=== PATIENT | female | born 1970 | race Caucasian/White ===

== ENCOUNTER 2022-02-23 17:19 | Emergency (ER) | payer BC ==
[~2022-02-23] VITALS: Ht 172.7 cm; Wt 132.0 kg
[2022-02-23 18:05] LABS: BASOPHILS % (AUTO) 0 % (0-10); EOSINOPHILS # (AUTO) 0.2 10^3/uL (0.0-0.3); EOSINOPHILS % (AUTO) 2 % (0-10); HEMATOCRIT 47 % (35-52); HEMOGLOBIN 15.9 g/dL (11.5-16.0); LYMPHOCYTES # (AUTO) 3.4 10^3/uL (1.0-4.0); LYMPHOCYTES % (AUTO) 32 % (12-44); MEAN CORPUSCULAR HEMOGLOBIN 32 pg (25-34); MEAN CORPUSCULAR HGB CONC 34 g/dL (32-36); MEAN CORPUSCULAR VOLUME 92 fL (80-99); MEAN PLATELET VOLUME 11.5 fL (9.0-12.2); MONOCYTES # (AUTO) 0.8 10^3/uL (0.0-1.0); MONOCYTES % (AUTO) 8 % (0-12); NEUTROPHILS # (AUTO) 6.1 10^3/uL (1.8-7.8); NEUTROPHILS % (AUTO) 58 % (42-75); PLATELET COUNT 177 10^3/uL (130-400); WHITE BLOOD COUNT 10.5 10^3/uL (4.3-11.0)
[2022-02-23 18:09] LABS: INR 1.1 (0.8-1.4); PROTHROMBIN TIME PATIENT 14.4 SEC (12.2-14.7)
[2022-02-23 18:10] LABS: ALBUMIN 4.2 GM/DL (3.2-4.5); CHLORIDE 105 MMOL/L (98-107); SODIUM 137 MMOL/L (135-145)
[2022-02-23 18:11] LABS: CALCIUM 9.7 MG/DL (8.5-10.1)
[2022-02-23 18:12] LABS: GLUCOSE 90 MG/DL (70-105); TOTAL PROTEIN 8.1 GM/DL (6.4-8.2)
[2022-02-23 18:13] LABS: CARBON DIOXIDE 21 MMOL/L (21-32)
[2022-02-23 18:14] LABS: BILIRUBIN,TOTAL 0.5 MG/DL (0.1-1.0)
[2022-02-23 18:16] LABS: ALKALINE PHOSPHATASE 98 U/L (40-136); CREATININE SERUM 0.75 MG/DL (0.60-1.30); GFR ESTIMATED 96
[2022-02-23 18:17] LABS: BUN/CREATININE RATIO 20
[2022-02-23 18:19] LABS: ALANINE AMINOTRANSFERASE 13 U/L (0-55); CREATINE KINASE 23 U/L (29-168); MAGNESIUM 2.1 MG/DL (1.6-2.4)
[2022-02-23 18:19] LABS: BILIRUBIN,URINE NEGATIVE (NEGATIVE); CLARITY,URINE CLEAR; COLOR,URINE YELLOW; GLUCOSE, URINE (UA) NEGATIVE (NEGATIVE); KETONES,URINE 1+ (NEGATIVE); LEUKOCYTE ESTERASE ,URINE NEGATIVE (NEGATIVE); NITRITE,URINE NEGATIVE (NEGATIVE); PH,URINE 5.5 (5-9); PROTEIN,URINE TRACE (NEGATIVE)
[2022-02-23 18:26] LABS: CREATINE KINASE MB 0.6 NG/ML (<6.6)
--- NOTE | 2022-02-23 18:26 | ED Cardiac General ---
History of Present Illness General Chief Complaint: Cardiac/General Problems Stated Complaint: SOA/PALPITATIONS Nursing Triage Note: PT AMBULATE TO ROOM 06 WITHOUT DIFFICULTY WITH C/O HEART PALPATATIONS. PT REPORTS HX OF PEs AND STATES THAT THIS IS WHAT SHE IS FEELING NOW. Source: patient History of Present Illness Date Seen by Provider: Feb 23, 2022 Time Seen by Provider: 17:55 Initial Comments PT ARRIVES VIA POV FROM HOME C/O SUDDEN ONSET OF PALPITATIONS AND SHORTNESS OF BREATH AT 1700 PT WAS SITTING AND STOOD UP AND HER HEART SUDDENLY BEGAN RACING AND "FLIPPING" AND SHE BECAME SHORT OF BREATH STATES SHE COUGHED SEVERAL TIMES WHILE HER HEART WAS RACING AND FLIPPING, AND COUGHING HAS RESOLVED STATES SHE FELT FINE ALL DAY SHE SITS ALL DAY--WORKS AT HOME, WORKS FOR [email or web address] NO CHEST PAIN NO SWEATS NO DIZZINESS OR SYNCOPE NO CHANGE IN CHRONIC LEG EDEMA NO FEVER OR RECENT ILLNESS STATES SHE DID HAVE COVID A MONTH AGO SEEN AT [facility] AT [facility] IN [place], AND TESTED NEGATIVE. NO RX GIVEN TOOK A HOME TEST A DAY OR TWO LATER AND IT WAS POSITIVE. CALLED HER IN [place], [place] AND HE CALLED IN RX FOR PAXLOVID 01/23/22, BUT PT NEVER PICKED IT UP AND NEVER FOLLOWED UP WITH ANYONE SHE STATES THOSE SYMPTOMS RESOLVED. HAS HAD COVID-19 VACCINE X 3 PT HAS HISTORY OF BILATERAL P.E.'S 09/2019. PT HAS BEEN OFF BLOOD THINNERS FOR AT LEAST 1 1/2 YEARS PT HAS HISTORY OF HTN, HYPERLIPIDEMIA AND DIABETES PT HAD SENA-EN-Y GASTRIC BYPASS 14 MONTHS AGO, AND ALL MEDICATIONS WERE STOPPED. STATES SHE DOES NOT TAKE ANY MEDICATIONS OF ANY KIND, INCLUDING NO ASPIRIN OR ANY OVER THE COUNTER MEDICATIONS PT SMOKES < 1 PPD PT MOVED HERE FROM [place], [place] IN NOVEMBER HAS NOT ESTABLISHED WITH A LOCAL DR. RICHIE crooks MACHINE SANDER: No PCP: NONE LOCAL, HAS IN [place], [place] Allergies and Home Medications Allergies Coded Allergies: codeine (Verified Allergy, Unknown, 02/23/22) Patient Home Medication List Home Medication List Reviewed: Yes Review of Systems Review of Systems Constitutional: no symptoms reported; No chills, No diaphoresis, No dizziness, No fever, No malaise, No weakness EENTM: No Symptoms Reported Respiratory: See HPI, Orthopnea, Shortness of Air, SOA With Exertion, SOA at Rest Cardiovascular: See HPI; Denies Chest Pain, Denies Edema; Irregular Heart Rate; Denies Lightheadedness; Palpitations; Denies Syncope Gastrointestinal: No Symptoms Reported; Denies Abdominal Pain, Denies Nausea, Denies Vomiting Genitourinary: No Symptoms Reported Musculoskeletal: no symptoms reported; No back pain Skin: no symptoms reported Psychiatric/Neurological: No Symptoms Reported Endocrine: No Symptoms Reported Hematologic/Lymphatic: No Symptoms Reported Past Qlhpqyi-Zqqgoz-Jlbqbb Hx Patient Social History Tobacco Use?: Yes (< 1 PPD) Tobacco type used: Cigarettes Smoking Status: Current Everyday Smoker Smokeless Tobacco Frequency: Never a User Use of E-Cig and/or Vaping dev: No Use of E-Cig and/or Vaping Melecio: Never a User Substance use?: No Alcohol Use?: Yes Alcohol Frequency: Once in a while Pt feels they are or have been: No Immunizations Up To Date COVID19 Vaccine [employer] [place]: [employer] Past Medical History Surgeries: Yes (SENA-EN-Y GASTRIC BYPASS 12/2020) Abdominal, Hysterectomy, Oophorectomy Respiratory: Yes Pulmonary Embolism Cardiac: Yes Chronic Edema/Swelling, Deep Vein Thrombosis, High Cholesterol, Hypertension 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 oz. kg; 44.00 BMI Method: General Appearance: WD/WN, Obese, Other (MILDLY DYSPNEIC AT REST, AND MODERATELY DYSPNEIC WITH EXERTION) Neck: Normal Inspection Respiratory: Normal Breath Sounds, Other ( ABOVE) Cardiovascular: No JVD, No Murmur, Tachycardia (100-110) Gastrointestinal: Non Tender, Soft Extremity: Normal Capillary Refill, Normal Range of Motion, Non Tender, No Calf Tenderness, Pedal Edema (3+ EDEMA BILATERALLY, ) Neurologic/Psychiatric: Alert, Oriented x3, No Motor/Sensory Deficits, Normal Mood/Affect, data integration developer II-XII Norm as Tested Skin: Normal Color, Warm/Dry Progress/Results/Core Measures Results/Orders Lab Results Laboratory Tests Test 02/23/22 17:42 02/23/22 17:47 02/23/22 18:11 Range/Units D-Dimer 6.07 H 0.00-0.49 UG/ML White Blood Count 10.5 4.3-11.0 10^3/uL Red Blood Count 5.05 3.80-5.11 10^6/uL Hemoglobin 15.9 11.5-16.0 g/dL Hematocrit 47 35-52 % Mean Corpuscular Volume 92 80-99 fL Mean Corpuscular Hemoglobin 32 25-34 pg Mean Corpuscular Hemoglobin Concent 34 32-36 g/dL Red Cell Distribution Width 12.2 10.0-14.5 % Platelet Count 177 130-400 10^3/uL Mean Platelet Volume 11.5 9.0-12.2 fL Immature Granulocyte % (Auto) 0 % Neutrophils (%) (Auto) 58 42-75 % Lymphocytes (%) (Auto) 32 12-44 % Monocytes (%) (Auto) 8 0-12 % Eosinophils (%) (Auto) 2 0-10 % Basophils (%) (Auto) 0 0-10 % Neutrophils # (Auto) 6.1 1.8-7.8 10^3/uL Lymphocytes # (Auto) 3.4 1.0-4.0 10^3/uL Monocytes # (Auto) 0.8 0.0-1.0 10^3/uL Eosinophils # (Auto) 0.2 0.0-0.3 10^3/uL Basophils # (Auto) 0.0 0.0-0.1 10^3/uL Immature Granulocyte # (Auto) 0.0 0.0-0.1 10^3/uL Prothrombin Time 14.4 12.2-14.7 SEC INR Comment 1.1 0.8-1.4 Activated Partial Thromboplast Time 31 24-35 SEC Sodium Level 137 135-145 MMOL/L Potassium Level 4.0 3.6-5.0 MMOL/L Chloride Level 105 98-107 MMOL/L Carbon Dioxide Level 21 21-32 MMOL/L Anion Gap 11 5-14 MMOL/L Blood Urea Nitrogen 15 7-18 MG/DL Creatinine 0.75 0.60-1.30 MG/DL Estimat Glomerular Filtration Rate 96 BUN/Creatinine Ratio 20 Glucose Level 90 70-105 MG/DL Calcium Level 9.7 8.5-10.1 MG/DL Corrected Calcium 9.5 8.5-10.1 MG/DL Magnesium Level 2.1 1.6-2.4 MG/DL Total Bilirubin 0.5 0.1-1.0 MG/DL Aspartate Amino Transf (AST/SGOT) 20 5-34 U/L Alanine Aminotransferase (ALT/SGPT) 13 0-55 U/L Alkaline Phosphatase 98 40-136 U/L Total Creatine Kinase 23 L 29-168 U/L Creatine Kinase MB 0.6 <6.6 NG/ML Troponin I < 0.028 <0.028 NG/ML B-Type Natriuretic Peptide 26.2 <100.0 PG/ML Total Protein 8.1 6.4-8.2 GM/DL Albumin 4.2 3.2-4.5 GM/DL TSH [place] Testing 3.05 0.35-4.94 UIU/ML Urine Color YELLOW Urine Clarity CLEAR Urine pH 5.5 5-9 Urine Specific [place] >=1.030 1.016-1.022 Urine Protein TRACE H NEGATIVE Urine Glucose (UA) NEGATIVE NEGATIVE Urine Ketones 1+ H NEGATIVE Urine Nitrite NEGATIVE NEGATIVE Urine Bilirubin NEGATIVE NEGATIVE Urine Urobilinogen 1.0 < = 1.0 MG/DL Urine Leukocyte Esterase NEGATIVE NEGATIVE Urine RBC (Auto) NEGATIVE NEGATIVE Urine RBC NONE /HPF Urine WBC 0-2 /HPF Urine Squamous Epithelial Cells 2-5 /HPF Urine Crystals NONE /LPF Urine Bacteria MODERATE H /HPF Urine Casts NONE /LPF Urine Mucus SMALL H /LPF Urine Culture Indicated YES Urine Opiates Screen NEGATIVE NEGATIVE Urine Oxycodone Screen NEGATIVE NEGATIVE Urine Methadone Screen NEGATIVE NEGATIVE Urine Propoxyphene Screen NEGATIVE NEGATIVE Urine Barbiturates Screen NEGATIVE NEGATIVE Ur Tricyclic Antidepressants Screen NEGATIVE NEGATIVE Urine Phencyclidine Screen NEGATIVE NEGATIVE Urine Amphetamines Screen NEGATIVE NEGATIVE Urine Methamphetamines Screen NEGATIVE NEGATIVE Urine Benzodiazepines Screen NEGATIVE NEGATIVE Urine Cocaine Screen NEGATIVE NEGATIVE Urine Cannabinoids Screen NEGATIVE NEGATIVE Influenza Type A (RT-PCR) Not Detected Not Detecte Influenza Type B (RT-PCR) Not Detected Not Detecte SARS-CoV-2 RNA (RT-PCR) Not Detected Not Detecte My Orders Orders - BOBBY ROMEO DO Ed Iv/Invasive Line Start (02/23/22 17:56) O2 (02/23/22:56) Monitor-Rhythm Ecg Trace Only (02/23/22 17:56) Bnp [place] (02/23/22 17:56) Cbc With Automated Diff (02/23/22:56) Comprehensive Metabolic Panel (02/23/22:56) Creatine Kinase (02/23/22:56) Creatine Kinase Mb (02/23/22:56) Drug Screen Stat (Urine) (02/23/22:56) Magnesium (02/23/22:56) Protime With Inr (02/23/22:) Partial Thromboplastin Time (02/23/22:56) Thyroid Analyzer (02/23/22:56) Ua Culture If Indicated (02/23/22:56) Troponin I Ade (02/23/22 17:56) Chest 1 View, Ap/Pa Only (02/23/22 17:56) Covid 19 Inhouse Test (02/23/22 18:02) Influenza A And B By Pcr (02/23/22 18:02) Isolation Central Supply Req (02/23/22 18:02) Fibrin Degradation Products (02/23/22 18:24) Ct Angio Chest W (02/23/22 18:24) Ondansetron Injection (Zofran Injectio (02/23/22 18:30) Iohexol Injection (Omnipaque 350 Mg/Ml 1 (02/23/22 18:30) Received Contrast (Hold Metformin- Contr (02/23/22 18:30) Sodium Chloride Flush (Catheter Flush Sy (02/23/22 18:30) Ns (Ivpb) (Sodium Chloride 0.9% Ivpb Bag (02/23/22 18:30) Urine Culture (02/23/22 18:11) Heparin Drip 14356 Unit/500ml (Heparin (02/23/22 19:15) Heparin (Bolus Per Protocol) (Heparin (B (02/23/22 19:15) Lorazepam Tablet (Ativan Tablet) (02/23/22 21:55) Medications Given in ED Current Medications Medications Dose Ordered Sig/Nemesio Route Start Time Stop Time Status Last Admin Dose Admin Heparin Sodium (Porcine) HEPARIN FULL PROTOC... ONCE ONCE IV 02/23/22 19:15 02/23/22 19:16 DC 02/23/22 19:21 5,000 UNIT Heparin Sodium/ Dextrose 500 ml @ 0 mls/hr Q0M ONCE IV 02/23/22 19:15 02/23/22 19:16 DC 02/23/22 19:24 47.5 MLS/HR Iohexol 100 ml ONCE ONCE IV 02/23/22 18:30 02/23/22 18:31 DC 02/23/22 18:50 88 ML Ondansetron HCl 4 mg ONCE ONCE IVP 02/23/22 18:30 02/23/22 18:31 DC 02/23/22 18:38 4 MG Sodium Chloride 10 ml NEEDED PRN IV 02/23/22 18:30 02/23/22 18:50 10 ML Sodium Chloride 100 ml ONCE ONCE IV 02/23/22 18:30 02/23/22 18:31 DC 02/23/22 18:50 80 ML Vital Signs/I&O 02/23/22 02/23/22 17:20 17:20 Temp 36.7 Pulse 111 Resp 18 B/P (MAP) 139/98 (112) Pulse Ox 97 O2 Delivery Room Air Room Air Blood Pressure Mean: 112 Progress Progress Note : Progress Note PPE WORN COVID AND FLU TESTING DONE O2 SAT 90-92% ON ROOM AIR, UP TO 96-98% ON 2L/NC HR REMAINED 100-110'S BP STABLE 130'S/LOW 100'S NO DETERIORATION IN PT'S CONDITION DURING ER STAY PT REQUESTS ANXIETY MEDICATION FOR FLIGHT--ATIVAN ORDERED Initial ECG Impression Date: Feb 23, 2022 Initial ECG Impression Time: 17:26 Initial ECG Rate: 107 Initial ECG Rhythm: S.Tach Initial ECG Impression: Nonspecific Changes Initial ECG Comparisson: No Previous ECG Available Diagnostic Imaging Comments CXR--PER RADIOLOGIST REPORT AT 1833 COMPARISON: None. FINDINGS: Normal heart size and central pulmonary vascularity. Patchy airspace opacities in the upper lobes. No pleural effusion or pneumothorax. No acute osseous findings. IMPRESSION: Mild patchy airspace opacities in the upper lobes, suspicious for pneumonitis. CT CHEST ANGIOGRAM--PER RADIOLOGIST VIA PHONE AT 1855 FINDINGS: Large burden occlusive and nonocclusive pulmonary emboli involving both main pulmonary arteries and extending into each lobe bilaterally. There is some straightening of the interventricular septum. Normal heart size. Normal caliber abdominal aorta. Lungs are clear. No pleural effusion or pneumothorax. No acute osseous findings. Visualized upper abdominal contents demonstrate no acute findings. Postoperative changes at the GE junction. IMPRESSION: 1. Large burden of pulmonary emboli involving both main pulmonary arteries extending into each lobe bilaterally. 2. Straightening of the interventricular septum suggesting right heart strain. Reviewed: Reviewed by Me, Discussed w/Radiologist Departure Communication (Admissions) 1903--SPOKE WITH DR. VÁSQUEZ, HOSPITALIST, HE ADVISES TO CONTACT HIGHER LEVEL OF CARE FOR POSSIBLE THROMBECTOMY. 1911--CALLED [facility], LEFT MESSAGE 1915--[facility] CALLED BACK, THEY ARE AT CAPACITY, CANNOT TAKE ANY TRANSFERS EVEN IF A CANDIDATE FOR THROMBECTOMY 1916--CALLED [facility] 1924--SPOKE WITH DR. BRIGHT, CV SURGEON, HE ADVISES THAT THEY CANNOT DO THROMBECTOMY OR I.R. IN [place], AND [facility] [place] IS AT CAPACITY. 1926--CALLED [facility]. THEY WILL CALL BACK. 2023--CALLED [facility] FOR UPDATE. THEY HAVE PAGED PHYSICIAN, WAITING ON RETURN CALL. 2035--[facility] CALLED BACK, THEY HAVE DISCUSSED WITH I.R. AND THEY CAN DO THROMBECTOMY TOMORROW. PAGING AVICULTURIST. THEY WILL CALL BACK. 2104--[facility] CALLED BACK, DR. CARABALLO HAS ACCEPTED PT FOR ADMIT. [facility]SP[facility] BEING CONTACTED 2129--[facility] CALLED BACK--THEY CANNOT TRANSPORT PT BY EITHER ROTOR OR FIXED WING DUE TO PT'S WEIGHT AND WEATHER. [facility]AL [facility] BEING CONTACTED FOR TRANSPORT, WELL OTHER AIR TRANSPORT SERVICES. 2153--[facility] WILL BE ABLE TO TRANSPORT PT. ETA 20 MINUTES. 2242--[facility] HERE FOR TRANSPORT. Impression Primary Impression: Bilateral pulmonary embolism Additional Impressions: HX OF BILATERAL P.E.'S RECENT COVID-19 INFECTION Obesity HTN (hypertension) Hx of diabetes mellitus Hx of hyperlipidemia History of hypothyroidism History of Sena-en-Y gastric bypass Disposition: [facility]-TRM HOSP Condition: Stable Transfer Transfer Reason: Exceeds level of care (INTERVENTIONAL RADIOLOGY, CV SURGERY CAPABILITY ) Transfer Facility: [place], [place] Method of Transfer: Air OUSMANE,BOBBY K DO Feb 23, 2022 18:26
--- NOTE | 2022-02-23 18:29 | Diagnostic Imaging Report ---
EXAM: CHEST 1 VIEW, AP/PA ONLY INDICATION: Dyspnea. Palpitations. COMPARISON: None. FINDINGS: Normal heart size and central pulmonary vascularity. Patchy airspace opacities in the upper lobes. No pleural effusion or pneumothorax. No acute osseous findings. IMPRESSION: Mild patchy airspace opacities in the upper lobes, suspicious for pneumonitis. Dictated by: Dictated on workstation # [id number]
[2022-02-23] MEDS ORDERED: IOHEXOL 350 MG/ML 100 ML (OMNIPAQUE 350) VIAL IV ONE (18:30)
[2022-02-23] MEDS ORDERED: NS 100 ML (IVPB) BAG IV ONE (18:30)
[2022-02-23] MEDS ORDERED: CATHETER FLUSH 10 ML SYR IV PRN (18:30)
[2022-02-23] MEDS ORDERED: ONDANSETRON 4 MG/2 ML (SDV) Z0FRAN IVP ONE (18:30)
[2022-02-23] MEDS ORDERED: HOLD METFORMIN - RECEIVED CONTRAST 20 ML VIAL IV SCH (18:30)
[2022-02-23 18:32] LABS: BACTERIA,URINE MODERATE /HPF; WBC,URINE 0-2 /HPF
[2022-02-23 18:39] LABS: TSH (THYROID ANALYZER) 3.05 UIU/ML (0.35-4.94)
[2022-02-23 18:48] LABS: AMPHETAMINE SCREEN, URINE NEGATIVE (NEGATIVE); BARBITURATE SCREEN URINE NEGATIVE (NEGATIVE); BENZODIAZEPINES SCREEN URINE NEGATIVE (NEGATIVE); CANNABINOID SCREEN, URINE NEGATIVE (NEGATIVE); COCAINE SCREEN URINE NEGATIVE (NEGATIVE); METHADONE STAT NEGATIVE (NEGATIVE); OPIATE SCREEN URINE NEGATIVE (NEGATIVE); OXYCODONE STAT NEGATIVE (NEGATIVE); PROPOXYPHENE STAT NEGATIVE (NEGATIVE); TRICYCLIC ANTIDEPRESSANTS SCRE NEGATIVE (NEGATIVE)
--- NOTE | 2022-02-23 19:00 | Diagnostic Imaging Report ---
PROCEDURE: CT angiography of the chest with contrast. TECHNIQUE: Multiple contiguous axial images were obtained through the chest after uneventful bolus administration of intravenous contrast. 3D reconstructed CTA MIP acquisitions were also performed. Auto Exposure Controls were utilized during the CT exam to meet ALARA standards for radiation dose reduction. INDICATION: History of pulmonary embolism. Chest pain. Palpitations. COMPARISON: None. FINDINGS: Large burden occlusive and nonocclusive pulmonary emboli involving both main pulmonary arteries and extending into each lobe bilaterally. There is some straightening of the interventricular septum. Normal heart size. Normal caliber abdominal aorta. Lungs are clear. No pleural effusion or pneumothorax. No acute osseous findings. Visualized upper abdominal contents demonstrate no acute findings. Postoperative changes at the GE junction. IMPRESSION: 1. Large burden of pulmonary emboli involving both main pulmonary arteries extending into each lobe bilaterally. 2. Straightening of the interventricular septum suggesting right heart strain. Findings discussed with Dr. Nona Looney at 6:55 PM on 02/23/2022. Dictated by: Dictated on workstation # [id number]
[2022-02-23] MEDS ORDERED: HEParin 1000 UNIT/ML (10ML VIAL) FOR BOLUS IV ONE (19:15)
[2022-02-23] MEDS ORDERED: HEParin DRIP 25000 UNIT/500ML 500 ML IV ONE (19:15)
[2022-02-23] MEDS ORDERED: LORazepam 0.5 MG (ATIVAN) TABLET PO STA (21:55)
[2022-02-23 22:48] VITALS: BP 121/102
== END 2022-02-23 23:34 | disposition short-term general hospital (02) ==
LOC: ER 17:22
DX: I26.99 Other pulmonary embolism without acute cor pulmonale (principal); U07.1 COVID-19; E66.9 Obesity, unspecified; I10 Essential (primary) hypertension; E11.9 Type 2 diabetes mellitus without complications; E78.5 Hyperlipidemia, unspecified; E03.9 Hypothyroidism, unspecified; F17.210 Nicotine dependence, cigarettes, uncomplicated; Z98.84 Bariatric surgery status; Z68.41 Body mass index [BMI] 40.0-44.9, adult
CPT/HCPCS: 36415; 71045; 71275; 80053; 80306; 81000; 82550; 82553; 83735; 83880; 84443; 84484; 85025; 85379; 85610; 85730; 87088; 87636; 93041